=== PATIENT | male | born 1990 | race Caucasian/White ===

== ENCOUNTER 2021-12-25 10:02 | Emergency (ER) | payer OTHER, MEDICAID ==
[~2021-12-25] VITALS: Ht 190.5 cm; Wt 83.9 kg
[~2021-12-25 10:02] MED LIST: CEPH500 PO; CRUTCH4 USE; DIPH25 PO; HYDACE5 PO; IBUP600 PO; NAPR500 PO; ONDA4 PO; OXYACE5T PO; RXCEPH500 PO; SULTRIDS PO; Vistaril25 MG PO
[2021-12-25] MEDS ORDERED: HYDR1TAB94 PO (12:15)
== END 2021-12-25 12:48 | disposition home or self-care (01) ==
LOC: ER 10:02
DX: S62.525A Nondisplaced fracture of distal phalanx of left thumb, initial encounter for closed fracture (principal); F17.210 Nicotine dependence, cigarettes, uncomplicated; W01.0XXA Fall on same level from slipping, tripping and stumbling without subsequent striking against object, initial encounter
CPT/HCPCS: 73140; A9270

== ENCOUNTER 2024-05-07 14:46 | Emergency (ER) | payer OTHER ==
[~2024-05-07] VITALS: Ht 167.6 cm; Wt 72.6 kg
[~2024-05-07 14:46] MED LIST changes: +HYDR1TAB94 PO
[2024-05-07 14:56] VITALS: BP 114/75
== END 2024-05-07 16:59 | disposition home or self-care (01) ==
LOC: ER 14:46
DX: S93.602A Unspecified sprain of left foot, initial encounter (principal); W10.8XXA Fall (on) (from) other stairs and steps, initial encounter
CPT/HCPCS: 73630; 99283-25